=== PATIENT | male | born 2000 | race Caucasian/White ===

== ENCOUNTER 2022-12-11 03:44 | Emergency (ER) | payer OTHER ==
[2022-12-11] MEDS ORDERED: Lidocaine/Transparent Dressing 1 EACH KIT ONE (03:56)
== END 2022-12-11 04:45 | disposition home or self-care (01) ==
LOC: CSHERS 03:44
DX: S06.9X1A Unspecified intracranial injury with loss of consciousness of 30 minutes or less, initial encounter (principal); S01.01XA Laceration without foreign body of scalp, initial encounter; W01.198A Fall on same level from slipping, tripping and stumbling with subsequent striking against other object, initial encounter; Y93.89 Activity, other specified; Y92.002 Bathroom of unspecified non-institutional (private) residence as the place of occurrence of the external cause
CPT/HCPCS: 12002; 70450

== ENCOUNTER 2023-03-05 12:10 | Emergency (ER) | payer OTHER ==
[2023-03-05] MEDS ORDERED: Ketorolac Tromethamine 30 MG (1 mL) VIAL ONE (12:53)
[2023-03-05] MEDS ORDERED: Morphine 4 MG/ML VIAL ONE (12:53)
== END 2023-03-05 14:02 | disposition home or self-care (01) ==
LOC: CSHERS 12:10
DX: S82.831A Other fracture of upper and lower end of right fibula, initial encounter for closed fracture (principal); S93.04XA Dislocation of right ankle joint, initial encounter; W01.0XXA Fall on same level from slipping, tripping and stumbling without subsequent striking against object, initial encounter
CPT/HCPCS: 96374; 96375; J1885; J2270